=== PATIENT | female | born 1945 | race Caucasian/White ===

== ENCOUNTER 2020-11-30 15:31 | Emergency (ER) | payer MEDICARE, OTHER ==
--- NOTE | 2020-11-30 17:07 | CR ---
PROCEDURE INFORMATION: Exam: XR Chest Exam date and time: 11/30/2020 4:39 PM Age: 75 years old Clinical indication: Shortness of breath TECHNIQUE: Imaging protocol: XR of the chest. Views: 1 view. COMPARISON: No relevant prior studies available. FINDINGS: Lungs: Right lung is clear. Question mild interstitial disease left midlung. No consolidation. Pleural spaces: Unremarkable. No pleural effusion. No pneumothorax. Heart/Mediastinum: Unremarkable. No cardiomegaly. Bones/joints: Unremarkable. IMPRESSION: Question interstitial disease central left lung. Interstitial type pneumonia is not ruled out.
[2020-11-30 17:19] VITALS: BP 116/82; PULSE 75
[2020-11-30 17:19] LABS: ANION GAP 11.6 mEq/L (7-13)
--- NOTE | 2020-11-30 17:34 | EDM.PDOC ---
ED HPI GENERAL MEDICAL PROBLEM - General Chief Complaint: Respiratory Problem Stated Complaint: DIFFICULTY BREATHING, SENT BY [facility] Time Seen by Provider: 11/30/20 17:20 Source of Information: Reports: Patient History Limitations: Reports: No Limitations - History of Present Illness INITIAL COMMENTS - FREE TEXT/NARRATIVE: This 75 yo female patient reports to the ED from the [facility] due to intermittent episodes of shortness of breath. The patient reports she has noticed several of these episodes over the past couple of days, but she has been getting more symptoms today. Onset: Unknown/Unsure Duration: Intermittent Location: Reports: Chest Quality: Reports: Other Severity: Moderate Improves with: Reports: None Worsens with: Reports: None Context: Reports: Other Associated Symptoms: Reports: Cough, Shortness of Breath - Related Data Allergies Allergy/AdvReac Type Severity Reaction Status Date / Time duloxetine HCl Allergy Unknown unknown Verified 05/07/18 10:39 [From Cymbalta] bacitracin Allergy Rash Verified 05/07/18 10:39 [From Neosporin ([id number])] neomycin Allergy Hives Verified 05/07/18 10:39 polymyxin B Allergy Rash Verified 05/07/18 10:39 [From Neosporin ([id number])] Home Meds: Home Meds Acetaminophen [Tylenol Arthritis] 1,300 mg PO BID 03/17/16 [History] Chlorthalidone 25 mg PO DAILY 03/17/16 [History] Furosemide 1 tab PO ASDIRECTED 03/17/16 [History] Gabapentin [Neurontin] 600 mg PO TID 03/17/16 [History] Insulin NPH/Insulin Reg,Human [HumuLIN 70-30 Pen] 55 unit SQ BID 03/17/16 [History] Metoprolol Tartrate 100 mg PO BID 03/17/16 [History] Simvastatin [Zocor] 20 mg PO BEDTIME 03/17/16 [History] amLODIPine Besylate [Amlodipine Besylate] 1 tab PO BID 03/17/16 [History] Acetaminophen/HYDROcodone [[place] 325-5 MG] 1 - 2 tab PO ASDIRECTED PRN 04/30/18 [History] Aspirin [Lo-Dose Aspirin EC] 81 mg PO DAILY 04/30/18 [History] Biotin 1 mg PO DAILY 04/30/18 [History] Cyclobenzaprine [Flexeril] 5 mg PO BEDTIME 04/30/18 [History] Fenofibrate Nanocrystallized [Fenofibrate] 48 mg PO DAILY 04/30/18 [History] Melatonin 10 mg PO BEDTIME 04/30/18 [History] Vitamin E 400 unit PO DAILY 04/30/18 [History] diazePAM [Valium.] 5 mg PO Q6HR PRN 04/30/18 [History] Lidocaine 5% [Lidoderm 5%] 1 patch TOP ASDIRECTED 05/07/18 [History] Multivitamin [Daily Uyen] 1 each PO DAILY 05/07/18 [History] Nystatin 15 gm TP BID 05/07/18 [History] Potassium Chloride 20 meq PO DAILY 05/07/18 [History] Sennosides/Docusate Sodium [Senna-S] 1 tab PO BID 05/07/18 [History] polyethylene glycoL 3350 [MiraLAX] 17 gm PO DAILY 05/07/18 [History] Past Medical History HEENT History: Reports: None Cardiovascular History: Reports: Arrhythmia, Hypertension Respiratory History: Reports: Asthma Other Respiratory History: childhood astma Gastrointestinal History: Reports: None Genitourinary History: Reports: None 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 Musculoskeletal History: Reports: None, Osteoarthritis, Other (See Below) Neurological History: Reports: None Psychiatric History: Reports: None Endocrine/Metabolic History: Reports: None, Diabetes, Type II Hematologic History: Reports: None Immunologic History: Reports: None Oncologic (Cancer) History: Reports: None Dermatologic History: Reports: None - Past Surgical History Cardiovascular Surgical History: Reports: None GI Surgical History: Reports: Appendectomy, Cholecystectomy Musculoskeletal Surgical History: Reports: Knee Replacement, Other (See Below) Other Musculoskeletal Surgeries/Procedures:: back surgery apr 16, both knee replacment Social & Family History - Family History Family Medical History: No Pertinent Family History - Caffeine Use Caffeine Use: Reports: Soda - Living Situation & Occupation Living situation: Reports: , with Spouse Occupation: Retired ED ROS GENERAL - Review of Systems Review Of Systems: Comprehensive ROS is negative, except as noted in HPI. ED EXAM, GENERAL - Physical Exam Exam: See Below Exam Limited By: No Limitations General Appearance: Alert, WD/WN, Anxious, Mild Distress, Obese Eye Exam: Bilateral Eye: EOMI, Normal Inspection, PERRL Ears: Normal External Exam, Normal Canal, Hearing Grossly Normal, Normal TMs Nose: Normal Inspection, Normal Mucosa, No Blood Throat/Mouth: Normal Inspection, Normal Lips, Normal Teeth, Normal Gums, Normal Oropharynx, Normal Voice, No Airway Compromise Head: Atraumatic, Normocephalic Neck: Normal Inspection, Supple, Non-Tender, Full Range of Motion Respiratory/Chest: No Respiratory Distress, Lungs Clear, Normal Breath Sounds, No Accessory Muscle Use, Chest Non-Tender Cardiovascular: Normal Peripheral Pulses, Regular Rate, Rhythm, No Edema, No Gallop, No JVD, No Murmur, No Rub GI/Abdominal: Normal Bowel Sounds, Soft, Non-Tender, No Organomegaly, No Distention, No Abnormal Bruit, No Mass (Female) Exam: Deferred Rectal (Female) Exam: Deferred Back Exam: Normal Inspection, Full Range of Motion, NT Extremities: Normal Inspection, Normal Range of Motion, Non-Tender, Normal Capillary Refill, No Pedal Edema Neurological: Alert, Oriented, CN II-XII Intact, Normal Cognition, Normal Gait, Normal Reflexes, No Motor/Sensory Deficits Psychiatric: Anxious Skin Exam: Warm, Dry, Intact, Normal Color, No Rash #1 Interpretation EKG Date: 11/30/20 Time: 16:27 Rhythm: NSR Rate (Beats/Min): 102 [place]: Normal P-Wave: Present QRS: Normal ST-T: Normal QT: Normal Comparison: NA - No Prior EKG Course - Vital Signs Last Recorded V/S: Last Vital Signs Temp 97 F 11/30/20 16:41 Pulse 75 11/30/20 16:41 Resp 20 11/30/20 16:41 BP 116/82 11/30/20 16:41 Pulse Ox 96 11/30/20 16:41 - Orders/Labs/Meds Orders: Active Orders 24 hr Category Date Time Status EKG 12 Lead [EKG Documentation Completion] [RC] STAT Care 11/30/20 16:24 Active Labs: Laboratory Tests 11/30/20 11/30/20 Range/Units 16:51 16:51 WBC 10.7 H (5.0-10.0) 10^3/uL RBC 4.33 (4.2-5.4) 10^6/uL Hgb 13.5 (12.0-16.0) g/dL Hct 42.1 (37.0-47.0) % MCV 97.2 (80-100) fL MCH 31.2 (27.0-34.0) pg MCHC 32.1 L (33.0-35.0) g/dL Plt Count 434 D (150-450) 10^3/uL Neut % (Auto) 80.2 H (42.2-75.2) % Lymph % (Auto) 10.3 L (20.5-50.1) % [place] % (Auto) 8.5 H (2-8) % Eos % (Auto) 0.6 L (1.0-3.0) % Baso % (Auto) 0.4 (0.0-1.0) % Sodium 142 (136-145) mmol/L Potassium 3.6 (3.5-5.1) mmol/L Chloride 99 (98-107) mmol/L Carbon Dioxide 35 H (21-32) mmol/L Anion Gap 11.6 (7-13) mEq/L BUN 27 H (7-18) mg/dL Creatinine 1.64 H (0.55-1.02) mg/dL Est Cr Clr Drug Dosing 25.27 mL/min Estimated GFR (MDRD) 31 BUN/Creatinine Ratio 16.5 (No establ ref range) Glucose 128 H (70-99) mg/dL Calcium 9.8 (8.5-10.1) mg/dL Total Bilirubin 0.5 (0.2-1.0) mg/dL AST 10 L (15-37) U/L ALT 15 (14-59) U/L Alkaline Phosphatase 67 (46-116) U/L Troponin I High Sens 5 (<=51) pg/mL Total Protein 8.7 H (6.4-8.2) g/dL Albumin 3.4 (3.4-5.0) g/dL Globulin 5.3 Albumin/Globulin Ratio 0.6 Departure - Departure Time of Disposition: 17:31 (') Disposition: Home, Self-Care 01 Condition: Fair Clinical Impression: Bronchitis - Discharge Information *PRESCRIPTION DRUG MONITORING PROGRAM REVIEWED*: Not Applicable *COPY OF PRESCRIPTION DRUG MONITORING REPORT IN PATIENT ANTHONY: Not Applicable Instructions: Acute Bronchitis, Adult, [id number] Care Plan Goals: The patient was advised of the examination, lab, EKG and x-ray results during the visit. The patient has an area of opacity in the left middle lung consistent with a developing bronchitis. The patient was discharged with a script for Augmentin (500/125) #21 to take 1 by mouth 3 times per day for 7 days. If the patient has any additional symptoms or concerns, the patient should either return to the emergency department or visit her primary care facility. Sepsis Event Note (ED) - Evaluation Sepsis Screening Result: No Definite Risk - Focused Exam Vital Signs: Vital Signs Temp Pulse Resp BP Pulse Ox 11/30/20 16:41 97 F 75 20 116/82 96 - My Orders Last 24 Hours: My Active Orders 11/30/20 16:24 EKG 12 Lead [EKG Documentation Completion] [RC] STAT - Assessment/Plan Last 24 Hours: My Active Orders 11/30/20 16:24 EKG 12 Lead [EKG Documentation Completion] [RC] STAT
== END 2020-11-30 17:43 | disposition home or self-care (01) ==
LOC: DL.ED 15:31
DX: J40 Bronchitis, not specified as acute or chronic (principal); I10 Essential (primary) hypertension; E11.9 Type 2 diabetes mellitus without complications; Z79.4 Long term (current) use of insulin; Z79.82 Long term (current) use of aspirin; Z79.899 Other long term (current) drug therapy; Z88.1 Allergy status to other antibiotic agents; Z88.8 Allergy status to other drugs, medicaments and biological substances
CPT/HCPCS: 36415; 71045; 80053; 84484; 85025; 99283; 99285-25

== ENCOUNTER 2020-12-06 14:37 | Emergency (ER) | payer MEDICARE, OTHER ==
[2020-12-06 14:52] VITALS: BP 162/68; PULSE 97
--- NOTE | 2020-12-06 14:53 | EDM.PDOC ---
ED HPI GENERAL MEDICAL PROBLEM - General Chief Complaint: General Stated Complaint: WEAKNESS, DIFFICULTY BREATHING Time Seen by Provider: 12/06/20 14:52 Source of Information: Reports: Patient, RN, RN Notes Reviewed History Limitations: Reports: No Limitations - History of Present Illness INITIAL COMMENTS - FREE TEXT/NARRATIVE: Margarita is a 75 y/o female who presents to the ED via personal vehicle with complaints of weakness. The patient reports her symptoms began three days after starting Augmentin for a diagnosis of bronchitis six days ago. The patient denies fever, shaking chills, chest pain, palpitations, nausea, vomiting, dysuria, or diarrhea. She feels her bilateral upper extremities are the most weak, but notes weakness with ambulation as well. She is still able to perform ADLs, however notes tasks feel more difficult. - Related Data Allergies Allergy/AdvReac Type Severity Reaction Status Date / Time duloxetine HCl Allergy Unknown unknown Verified 12/06/20 14:51 [From Cymbalta] bacitracin Allergy Rash Verified 12/06/20 14:51 [From Neosporin ([id number])] neomycin Allergy Hives Verified 12/06/20 14:51 polymyxin B Allergy Rash Verified 12/06/20 14:51 [From Neosporin ([id number])] Home Meds: Home Meds Chlorthalidone 25 mg PO DAILY 03/17/16 [History] Furosemide 1 tab PO ASDIRECTED 03/17/16 [History] Gabapentin [Neurontin] 600 mg PO TID 03/17/16 [History] Insulin NPH/Insulin Reg,Human [HumuLIN 70-30 Pen] 50 unit SQ BID 03/17/16 [History] Metoprolol Tartrate 100 mg PO BID 03/17/16 [History] Simvastatin [Zocor] 20 mg PO BEDTIME 03/17/16 [History] amLODIPine Besylate [Amlodipine Besylate] 1 tab PO BID 03/17/16 [History] Acetaminophen/HYDROcodone [[place] 325-5 MG] 1 - 2 tab PO ASDIRECTED PRN 04/30/18 [History] Aspirin [Lo-Dose Aspirin EC] 81 mg PO DAILY 04/30/18 [History] Biotin 1 mg PO DAILY 04/30/18 [History] Cyclobenzaprine [Flexeril] 5 mg PO BEDTIME 04/30/18 [History] Fenofibrate Nanocrystallized [Fenofibrate] 48 mg PO DAILY 04/30/18 [History] Melatonin 10 mg PO BEDTIME 04/30/18 [History] Vitamin E 400 unit PO DAILY 04/30/18 [History] Lidocaine 5% [Lidoderm 5%] 1 patch TOP ASDIRECTED 05/07/18 [History] Multivitamin [Daily Uyen] 1 each PO DAILY 05/07/18 [History] Nystatin 15 gm TP BID 05/07/18 [History] Sennosides/Docusate Sodium [Senna-S] 1 tab PO BID 05/07/18 [History] polyethylene glycoL 3350 [MiraLAX] 17 gm PO DAILY 05/07/18 [History] Past Medical History HEENT History: Reports: None Cardiovascular History: Reports: Arrhythmia, Hypertension Respiratory History: Reports: Asthma Other Respiratory History: childhood astma Gastrointestinal History: Reports: None Genitourinary History: Reports: 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 Musculoskeletal History: Reports: None, Osteoarthritis, Other (See Below) Neurological History: Reports: None Psychiatric History: Reports: None Endocrine/Metabolic History: Reports: None, Diabetes, Type II Hematologic History: Reports: None Immunologic History: Reports: None Oncologic (Cancer) History: Reports: None Dermatologic History: Reports: None - Past Surgical History Cardiovascular Surgical History: Reports: None GI Surgical History: Reports: Appendectomy, Cholecystectomy Musculoskeletal Surgical History: Reports: Knee Replacement, Other (See Below) Other Musculoskeletal Surgeries/Procedures:: back surgery apr 16, both knee replacment Social & Family History - Family History Family Medical History: No Pertinent Family History - Caffeine Use Caffeine Use: Reports: Soda - Living Situation & Occupation Living situation: Reports: , with Spouse Occupation: Retired ED ROS GENERAL - Review of Systems Review Of Systems: Comprehensive ROS is negative, except as noted in HPI. ED EXAM, GENERAL - Physical Exam Exam: See Below Exam Limited By: No Limitations General Appearance: Alert, No Apparent Distress, Obese Eye Exam: Bilateral Eye: EOMI, Normal Inspection, PERRL (3mm) Ears: Normal External Exam, Normal Canal, Hearing Grossly Normal, Normal TMs Ear Exam: Bilateral Ear: Auricle Normal, Canal Normal, TM normal Nose: Normal Inspection, Normal Mucosa, No Blood Throat/Mouth: Normal Lips, Normal Teeth, Normal Gums, Normal Voice, No Airway Compromise. No: Normal Oropharynx (Dry mucous membranes) Head: Atraumatic, Normocephalic Neck: Normal Inspection, Supple, Non-Tender, Full Range of Motion. No: Lymphadenopathy (L), Lymphadenopathy (R) Respiratory/Chest: No Respiratory Distress, Lungs Clear, Normal Breath Sounds, No Accessory Muscle Use, Chest Non-Tender Cardiovascular: Normal Peripheral Pulses, No Gallop, No JVD, No Rub, Systolic Murmur (2/6, loudest over the pulmonic area; No radiation into carotids), Irregularly Irregular. No: No Edema Peripheral Pulses: 2+: Radial (L), Radial (R) GI/Abdominal: Normal Bowel Sounds, Soft, Non-Tender, No Distention, No Abnormal Bruit, No Mass, Pelvis Stable (Female) Exam: Deferred Rectal (Female) Exam: Deferred Back Exam: Normal Inspection, Full Range of Motion. No: CVA Tenderness (L), CVA Tenderness (R) Extremities: Normal Inspection, Normal Range of Motion, Non-Tender, No Pedal Edema, Normal Capillary Refill. No: Mottled, Pallor, Redness Neurological: Alert, Oriented, CN II-XII Intact, Normal Cognition, No Motor/Sensory Deficits, Abnormal Gait (Wheelchair for ambulation) Psychiatric: Normal Affect, Normal Mood Skin Exam: Warm, Dry, Intact, Normal Color, No Rash. No: Cyanosis, Jaundice, Mottled, Pallor, Wound/Incision Lymphatic: No Adenopathy #1 Interpretation EKG Date: 12/06/20 Time: 15:00 Rhythm: A-Fib Rate (Beats/Min): 91 [place]: Normal P-Wave: Absent QRS: Normal ST-T: Normal QT: Normal Comparison: Change From Previous EKG (Compared to 11-30-20) EKG Interpretation Comments: AFib; q-wave III; No evidence of acute myocardial ischemia Course - Vital Signs Last Recorded V/S: Last Vital Signs Temp 98.0 F 12/06/20 14:51 Pulse 97 12/06/20 14:51 Resp 16 12/06/20 14:51 BP 162/68 H 12/06/20 14:51 Pulse Ox 98 12/06/20 14:51 - Orders/Labs/Meds Labs: Laboratory Tests 07/21/21 07/21/21 07/21/21 Range/Units 15:23 15:23 17:43 WBC 9.6 (5.0-10.0) 10^3/uL RBC 4.46 (4.2-5.4) 10^6/uL Hgb 13.6 (12.0-16.0) g/dL Hct 42.3 (37.0-47.0) % MCV 94.8 (80-100) fL MCH 30.5 (27.0-34.0) pg MCHC 32.2 L (33.0-35.0) g/dL Plt Count 454 H (150-450) 10^3/uL Neut % (Auto) 80.8 H (42.2-75.2) % Lymph % (Auto) 10.3 L (20.5-50.1) % [place] % (Auto) 7.3 (2-8) % Eos % (Auto) 1.2 (1.0-3.0) % Baso % (Auto) 0.4 (0.0-1.0) % Sodium 138 (136-145) mmol/L Potassium 3.9 (3.5-5.1) mmol/L Chloride 96 L (98-107) mmol/L Carbon Dioxide 32 (21-32) mmol/L Anion Gap 13.9 H (7-13) mEq/L BUN 32 H (7-18) mg/dL Creatinine 1.66 H (0.55-1.02) mg/dL Est Cr Clr Drug Dosing 27.16 mL/min Estimated GFR (MDRD) 30 BUN/Creatinine Ratio 19.3 (No establ ref range) Glucose 168 H (70-99) mg/dL Calcium 9.8 (8.5-10.1) mg/dL Magnesium 1.7 L (1.8-2.4) mg/dL Total Bilirubin 0.5 (0.2-1.0) mg/dL AST 23 (15-37) U/L ALT 13 L (14-59) U/L Alkaline Phosphatase 62 (46-116) U/L Troponin I High Sens 14 (<=51) pg/mL B-Natriuretic Peptide 175 H (0-100) pg/ml Total Protein 8.6 H (6.4-8.2) g/dL Albumin 3.1 L (3.4-5.0) g/dL Globulin 5.5 Albumin/Globulin Ratio 0.56 Vitamin B12 317 (193-986) pg/mL TSH, Ultra Sensitive 1.49 (0.36-3.74) uIU/mL Urine Color (YELLOW) Urine Appearance (CLEAR) Urine pH (5.0-9.0) Ur Specific [place] (1.005-1.030) Urine Protein (NEGATIVE) Urine Glucose (UA) (NEGATIVE) Urine Ketones (NEGATIVE) Urine Occult Blood (NEGATIVE) Urine Nitrite (NEGATIVE) Urine Bilirubin (NEGATIVE) Urine Urobilinogen (0.2-1.0) mg/dL Ur Leukocyte Esterase (NEGATIVE) Urine RBC /HPF Urine WBC (0-5/HPF) /HPF Ur Epithelial Cells (NOT SEEN) /HPF Urine Bacteria (0-FEW/HPF) /HPF Urine Mucus (NOT SEEN) /LPF Ethyl Alcohol < 3 (0) mg/dL Influenza Type A RNA Negative (NEGATIVE) Influenza Type B RNA Negative (NEGATIVE) SARS-CoV-2 RNA ([place]) Negative (NEGATIVE) 12/06/20 Range/Units 17:45 WBC (5.0-10.0) 10^3/uL RBC (4.2-5.4) 10^6/uL Hgb (12.0-16.0) g/dL Hct (37.0-47.0) % MCV (80-100) fL MCH (27.0-34.0) pg MCHC (33.0-35.0) g/dL Plt Count (150-450) 10^3/uL Neut % (Auto) (42.2-75.2) % Lymph % (Auto) (20.5-50.1) % [place] % (Auto) (2-8) % Eos % (Auto) (1.0-3.0) % Baso % (Auto) (0.0-1.0) % Sodium (136-145) mmol/L Potassium (3.5-5.1) mmol/L Chloride (98-107) mmol/L Carbon Dioxide (21-32) mmol/L Anion Gap (7-13) mEq/L BUN (7-18) mg/dL Creatinine (0.55-1.02) mg/dL Est Cr Clr Drug Dosing mL/min Estimated GFR (MDRD) BUN/Creatinine Ratio (No establ ref range) Glucose (70-99) mg/dL Calcium (8.5-10.1) mg/dL Magnesium (1.8-2.4) mg/dL Total Bilirubin (0.2-1.0) mg/dL AST (15-37) U/L ALT (14-59) U/L Alkaline Phosphatase (46-116) U/L Troponin I High Sens (<=51) pg/mL B-Natriuretic Peptide (0-100) pg/ml Total Protein (6.4-8.2) g/dL Albumin (3.4-5.0) g/dL Globulin Albumin/Globulin Ratio Vitamin B12 (193-986) pg/mL TSH, Ultra Sensitive (0.36-3.74) uIU/mL Urine Color Yellow (YELLOW) Urine Appearance Clear (CLEAR) Urine pH 5.5 (5.0-9.0) Ur Specific [place] 1.015 (1.005-1.030) Urine Protein Negative (NEGATIVE) Urine Glucose (UA) Negative (NEGATIVE) Urine Ketones Negative (NEGATIVE) Urine Occult Blood Trace-intact H (NEGATIVE) Urine Nitrite Negative (NEGATIVE) Urine Bilirubin Negative (NEGATIVE) Urine Urobilinogen 0.2 (0.2-1.0) mg/dL Ur Leukocyte Esterase Negative (NEGATIVE) Urine RBC 0-5 /HPF Urine WBC 0-5 (0-5/HPF) /HPF Ur Epithelial Cells Occasional (NOT SEEN) /HPF Urine Bacteria Rare (0-FEW/HPF) /HPF Urine Mucus Not seen (NOT SEEN) /LPF Ethyl Alcohol (0) mg/dL Influenza Type A RNA (NEGATIVE) Influenza Type B RNA (NEGATIVE) SARS-CoV-2 RNA ([place]) (NEGATIVE) Meds: Medications Discontinued Medications Generic Name Dose Route Start Last Admin Trade Name Freq PRN Reason Stop Dose Admin Apixaban 5 mg 12/06/20 18:18 12/06/20 18:29 Apixaban 5 Mg Tab PO 12/06/20 18:19 5 mg ONETIME ONE Administration - Re-Assessments/Exams Free Text/Narrative Re-Assessment/Exam: 12/06/20 Patient noted to be in AFib, compared to recent visit patient was in NSR. Given new onset weakness and dyspnea with exertion, in conjunction with findings of new Afib, case discussed with Dr. Borges for observation for initiation of anticoagulation and overnight cardiac monitoring. Blood work, imaging, and examination reviewed with Dr. Borges who feels the patient does not meet criteria for observation as her weakness and dyspnea do not require monitoring. Dr. Borges states anticoagulation can be initiated in the EOD setting with an appropriate CHADS2 score. Walking desaturation study performed to ensure patient safety at home. Appropriate saturations noted throughout study; work of breathing increased to low 30s RR, but reduced appropriately to low 20s with one minute of rest. Patient has walker at home. Findings of examination, lab work, imaging, and discussion with Dr. Borges reviewed with patient and . Will initiate anticoagulation with Apixaban 2.5mg. Patient instructed to follow up with primary care provider tomorrow morning. Red flag signs and symptoms which would warrant reevaluation reviewed. Patient and verbalized understanding and agreement with the plan of care. Departure - Departure Time of Disposition: 18:20 Disposition: Home, Self-Care 01 Condition: Fair Clinical Impression: Weakness, Dyspnea on exertion, Atrial fibrillation by electrocardiogram - Discharge Information *PRESCRIPTION DRUG MONITORING PROGRAM REVIEWED*: Not Applicable *COPY OF PRESCRIPTION DRUG MONITORING REPORT IN PATIENT ANTHONY: Not Applicable Instructions: Weakness, [id number], Shortness of Breath, Adult, Atrial Fibrillation, [id number] Referrals: Ambar Pearl MD [Primary Care Provider] - Forms: ED Department Discharge Additional Instructions: Rx: apixaban 1.) Stop taking Augmentin. 2.) Follow up with Dr. Pearl in 1-2 days regarding today's visit. 3.) Return to the emergency department with any worsening symptoms, fever, shaking chills, chest pain, or shortness of breath at rest. Sepsis Event Note (ED) - Evaluation Sepsis Screening Result: No Definite Risk
[2020-12-06 16:30] LABS: ANION GAP 13.9 mEq/L (7-13); CHLORIDE,CL 96 mmol/L (98-107); SODIUM,NA 138 mmol/L (136-145)
[2020-12-06] MEDS ORDERED: Apixaban 5 MG Tab PO ONE (18:18)
[2020-12-06 18:38] LABS: CORONAVIRUS COVID-19 NAA NEGATIVE (NEGATIVE)
--- NOTE | 2020-12-06 18:57 | CR ---
PROCEDURE INFORMATION: Exam: XR Chest Exam date and time: 12/06/2020 6:19 PM Age: 75 years old Clinical indication: Shortness of breath; Additional info: Weakness; SOB with exertion TECHNIQUE: Imaging protocol: XR of the chest. Views: 1 view. COMPARISON: CR Chest 1V Frontal 11/30/2020 4:39 PM FINDINGS: Lungs: Unremarkable. No consolidation. Pleural spaces: Unremarkable. No pleural effusion. No pneumothorax. Heart/Mediastinum: Unremarkable. No cardiomegaly. Bones/joints: Unremarkable. IMPRESSION: No acute findings.
--- NOTE | 2020-12-15 11:17 | PCM.SN.2 ---
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 Pearl, regarding last night's EOD visit. Dr. Pearl informed of prescription for Apixaban and need for follow up. Cafeteria Clerk's discussion with Dr. Borges about observation reviewed with Dr. Pearl.
== END 2020-12-06 18:34 | disposition home or self-care (01) ==
LOC: DL.ED 14:37
DX: R53.1 Weakness (principal); I48.91 Unspecified atrial fibrillation; R06.00 Dyspnea, unspecified; I10 Essential (primary) hypertension; E11.9 Type 2 diabetes mellitus without complications; J45.909 Unspecified asthma, uncomplicated; Z79.82 Long term (current) use of aspirin; Z79.4 Long term (current) use of insulin; Z79.899 Other long term (current) drug therapy; Z88.1 Allergy status to other antibiotic agents; Z88.8 Allergy status to other drugs, medicaments and biological substances; Z20.822 Contact with and (suspected) exposure to COVID-19
CPT/HCPCS: 0240U; 36415; 71045; 80053; 80307; 81001; 82607; 83735; 83880; 84443; 84484; 85025; 93005; 99285; A9270

== ENCOUNTER 2020-12-29 16:41 | Emergency (ER) | payer MEDICARE, OTHER ==
--- NOTE | 2020-12-29 16:46 | EDM.PDOC ---
ED HPI GENERAL MEDICAL PROBLEM - General Chief Complaint: Chest Pain Stated Complaint: CHEST PAIN SENT BY [facility] Time Seen by Provider: 12/29/20 16:45 Source of Information: Reports: Patient, Old Records, Provider (Dr. Pearl), RN, RN Notes Reviewed History Limitations: Reports: No Limitations - History of Present Illness INITIAL COMMENTS - FREE TEXT/NARRATIVE: Margarita is a 75 y/o female with a history of new onset AFib, anticoagulated on Eliquis, who presents to the ED via personal vehicle for complaints of chest pain. The patient's provider, Dr. Pearl, called fiction and nonfiction prose writer for update regarding her conversation with the patient earlier today regarding crushing chest pain that began this morning. The patient is set to receive cardiac catheterization on January [address] [facility], and has been started on Lorazepam for anxiety related to her recent diagnosis of AFib. The patient states her pain began this morning in her left lower chest and has since radiated into left upper chest. She has taken no medications for her pain. She denies fever, shaking chills, sore throat, abdominal pain, nausea, vomiting, or diarrhea. She does attest to weakness and productive cough. Chest Pain Score (Numeric/FACES): 9 - Related Data Allergies Allergy/AdvReac Type Severity Reaction Status Date / Time duloxetine HCl Allergy Unknown unknown Verified 12/06/20 14:51 [From Cymbalta] bacitracin Allergy Rash Verified 12/06/20 14:51 [From Neosporin ([id number])] neomycin Allergy Hives Verified 12/06/20 14:51 polymyxin B Allergy Rash Verified 12/06/20 14:51 [From Neosporin ([id number])] Home Meds: Home Meds Chlorthalidone 25 mg PO DAILY 03/17/16 [History] Furosemide 1 tab PO ASDIRECTED 03/17/16 [History] Gabapentin [Neurontin] 600 mg PO TID 03/17/16 [History] Insulin NPH/Insulin Reg,Human [HumuLIN 70-30 Pen] 50 unit SQ BID 03/17/16 [History] Metoprolol Tartrate 100 mg PO BID 03/17/16 [History] Simvastatin [Zocor] 20 mg PO BEDTIME 03/17/16 [History] amLODIPine Besylate [Amlodipine Besylate] 1 tab PO BID 03/17/16 [History] Acetaminophen/HYDROcodone [Frohna 325-5 MG] 1 - 2 tab PO ASDIRECTED PRN 04/30/18 [History] Aspirin [Lo-Dose Aspirin EC] 81 mg PO DAILY 04/30/18 [History] Biotin 1 mg PO DAILY 04/30/18 [History] Cyclobenzaprine [Flexeril] 5 mg PO BEDTIME 04/30/18 [History] Fenofibrate Nanocrystallized [Fenofibrate] 48 mg PO DAILY 04/30/18 [History] Melatonin 10 mg PO BEDTIME 04/30/18 [History] Vitamin E 400 unit PO DAILY 04/30/18 [History] Lidocaine 5% [Lidoderm 5%] 1 patch TOP ASDIRECTED 05/07/18 [History] Multivitamin [Daily Uyen] 1 each PO DAILY 05/07/18 [History] Nystatin 15 gm TP BID 05/07/18 [History] Sennosides/Docusate Sodium [Senna-S] 1 tab PO BID 05/07/18 [History] polyethylene glycoL 3350 [MiraLAX] 17 gm PO DAILY 05/07/18 [History] Past Medical History HEENT History: Reports: None Cardiovascular History: Reports: Arrhythmia, Hypertension Respiratory History: Reports: Asthma Other Respiratory History: childhood astma Gastrointestinal History: Reports: None Genitourinary History: Reports: None OVERHEAD WORKER History: Reports: None Musculoskeletal History: Reports: None, Osteoarthritis, Other (See Below) Neurological History: Reports: None Psychiatric History: Reports: None Endocrine/Metabolic History: Reports: None, Diabetes, Type II Hematologic History: Reports: None Immunologic History: Reports: None Oncologic (Cancer) History: Reports: None Dermatologic History: Reports: None - Past Surgical History Cardiovascular Surgical History: Reports: None GI Surgical History: Reports: Appendectomy, Cholecystectomy Musculoskeletal Surgical History: Reports: Knee Replacement, Other (See Below) Other Musculoskeletal Surgeries/Procedures:: back surgery apr 16, both knee replacment Social & Family History - Family History Family Medical History: No Pertinent Family History - Caffeine Use Caffeine Use: Reports: None - Living Situation & Occupation Living situation: Reports: , with Spouse Occupation: Retired ED ROS GENERAL - Review of Systems Review Of Systems: Comprehensive ROS is negative, except as noted in HPI. ED EXAM, GENERAL - Physical Exam Exam: See Below Exam Limited By: No Limitations General Appearance: Alert, Anxious, Mild Distress (Chest pain), Obese Eye Exam: Bilateral Eye: EOMI, Normal Inspection, PERRL (3mm) Ears: Normal External Exam, Hearing Grossly Normal Nose: Normal Inspection, Normal Mucosa, No Blood Throat/Mouth: Normal Voice, No Airway Compromise. No: Normal Oropharynx (Dry mucous membranes) Head: Atraumatic, Normocephalic Neck: Normal Inspection, Supple, Non-Tender, Full Range of Motion. No: Lymphadenopathy (L), Lymphadenopathy (R) Respiratory/Chest: No Accessory Muscle Use, Decreased Breath Sounds, Rales (To right lower lobe). No: Chest Non-Tender, Crackles, Rhonchi, Wheezing Cardiovascular: No Gallop, No JVD, No Murmur, No Rub, Tachycardia, Irregularly Irregular. No: No Edema Peripheral Pulses: 2+: Radial (L), Radial (R), Dorsalis Pedis (L), Dorsalis Pedis (R) GI/Abdominal: Normal Bowel Sounds, Soft, Non-Tender, No Distention, No Abnormal Bruit, No Mass, Pelvis Stable (Female) Exam: Deferred Rectal (Female) Exam: Deferred Back Exam: Normal Inspection, Full Range of Motion Extremities: Normal Inspection, Normal Range of Motion, Non-Tender, Normal Capillary Refill, Pedal Edema (Trace to LLE) Neurological: Alert, Oriented, CN II-XII Intact, Normal Cognition, Normal Gait, No Motor/Sensory Deficits Psychiatric: Anxious Skin Exam: Warm, Dry, Intact, Normal Color. No: Cyanosis, Ecchymosis, Erythema, Jaundice, Mottled, Pallor, Petechiae #1 Interpretation EKG Date: 12/29/20 Time: 17:07 Rhythm: A-Fib Rate (Beats/Min): 101 Wilmer: Normal P-Wave: Absent QRS: Normal ST-T: Elevated Course - Vital Signs Last Recorded V/S: Last Vital Signs Temp 97 F 12/29/20 16:45 Pulse 112 H 12/29/20 16:45 Resp 28 H 12/29/20 16:45 BP 139/79 12/29/20 17:02 Pulse Ox 98 12/29/20 16:45 - Orders/Labs/Meds Labs: Laboratory Tests 08/13/21 08/13/21 08/13/21 Range/Units 17:01 17:01 17:01 WBC 11.3 H (5.0-10.0) 10^3/uL RBC 4.21 (4.2-5.4) 10^6/uL Hgb 13.4 (12.0-16.0) g/dL Hct 40.4 (37.0-47.0) % MCV 96.0 (80-100) fL MCH 31.8 (27.0-34.0) pg MCHC 33.2 (33.0-35.0) g/dL Plt Count 283 D (150-450) 10^3/uL Neut % (Auto) 81.9 H (42.2-75.2) % Lymph % (Auto) 9.9 L (20.5-50.1) % [place] % (Auto) 6.6 (2-8) % Eos % (Auto) 1.2 (1.0-3.0) % Baso % (Auto) 0.4 (0.0-1.0) % PT 11.2 (9.0-12.0) SEC INR 1.1 (0.9-1.2) APTT 27.6 (22.0-34.0) SEC Sodium 141 (136-145) mmol/L Potassium 3.9 (3.5-5.1) mmol/L Chloride 101 (98-107) mmol/L Carbon Dioxide 28 (21-32) mmol/L Anion Gap 15.9 H (7-13) mEq/L BUN 27 H (7-18) mg/dL Creatinine 1.49 H (0.55-1.02) mg/dL Est Cr Clr Drug Dosing 27.82 mL/min Estimated GFR (MDRD) 34 BUN/Creatinine Ratio 18.1 (No establ ref range) Glucose 118 H (70-99) mg/dL Calcium 8.7 (8.5-10.1) mg/dL Magnesium 1.5 L (1.8-2.4) mg/dL Total Bilirubin 0.5 (0.2-1.0) mg/dL AST 27 (15-37) U/L ALT 17 (14-59) U/L Alkaline Phosphatase 70 (46-116) U/L Troponin I High Sens 2676 H* (<=51) pg/mL C-Reactive Protein 3.6 H (0.0-0.9) mg/dL B-Natriuretic Peptide 161 H (0-100) pg/ml Total Protein 8.3 H (6.4-8.2) g/dL Albumin 3.3 L (3.4-5.0) g/dL Globulin 5.0 Albumin/Globulin Ratio 0.66 Meds: Medications Discontinued Medications Generic Name Dose Route Start Last Admin Trade Name Freq PRN Reason Stop Dose Admin Aspirin 324 mg 12/29/20 17:49 12/29/20 17:56 Aspirin 81 Mg Tab.Chew PO 12/29/20 17:50 324 mg ONETIME ONE Administration Heparin Sodium (Porcine) 4,000 units 12/29/20 17:49 12/29/20 17:56 Heparin Sodium 5,000 Units/Ml Vial IVPUSH 12/29/20 17:50 4,000 units .BOLUS ONE Administration Heparin Sodium/Sodium Chloride 25,000 units in 500 mls @ 19.305 mls/hr 12/29/20 18:00 12/29/20 17:56 Heparin 25,000 Units In 1/2 Ns 500 Ml IV 8 units/kg/hr TITRATE CONRADO 19.305 mls/hr Administration Protocol 8 UNITS/KG/HR Nitroglycerin 0.4 mg 12/29/20 17:00 12/29/20 17:02 Nitroglycerin 0.4 Mg Tab.Sl SL 12/29/20 17:01 0.4 mg ONETIME ONE Administration - Radiology Interpretation Free Text/Narrative:: [facility] Final Radiology Report Call: [phone] assistance Online chat: [email or web address] Name: MARGARTIA CAMPO Age: 75Years F Date: 12/29/2020 SSN: -- : [id number] Study: CR CHEST 1V FRONTAL Requesting Physician: Rachell Newman Images: 1 Addl Studies: Provided Clinical History: Chest pain Contrast: Contrast Medium: Contrast Amount: Contrast Method: CONFIDENTIALITY STATEMENT This report is intended only for use by the referring physician, and only in accordance with law. If you received this in error, call [phone]. Page 1 of 1 PROCEDURE INFORMATION: Exam: XR Chest Exam date and time: 12/29/2020 5:04 PM Age: 75 years old Clinical indication: Other: Chest pain TECHNIQUE: Imaging protocol: XR of the chest. Views: 1 view. COMPARISON: CR Chest 1V Frontal 12/06/2020 6:19 PM FINDINGS: Lungs: Linear atelectasis/scarring in right lower lung. There are no suspicious pulmonary nodules or areas of lung consolidation. Pleural spaces: Unremarkable. No pleural effusion. No pneumothorax. Heart/Mediastinum: Unremarkable. No cardiomegaly. Bones/joints: Age appropriate. IMPRESSION: Linear atelectasis/scarring in right lower lung. This is unchanged. Thank you for allowing us to participate in the care of your patient. Dictated and Authenticated by: Shelton Young MD 12/29/2020 5:21 PM Central Time ([place] & [place]) - Re-Assessments/Exams Free Text/Narrative Re-Assessment/Exam: 12/29/20 Nitro SL administered with appropriate pain reduction from 8 to 2. 2L of O2 applied. EKG reviewed with Dr. David who states concern regarding ST changes in II, III, and aVR. Troponin 2600+ ASA 325mg chewed. Heparin gtt initiated at 8 u/kg/hr with 4000u bolus administered. Dr. Mcguire accepting patient for transfer into [facility]. Findings of examination, lab work, imaging and discussion with Dr. David reviewed with patient. Patient and verbalized understanding and agreement with the plan of care. Departure - Departure Time of Disposition: 18:25 Disposition: DC/Tfer to Acute Hospital 02 Reason for Transfer *Q: Primary PCI Indicated Clinical Impression: STEMI (ST elevation myocardial infarction) Qualifiers: Involved coronary artery: unspecified coronary artery Qualified Code(s): I21.3 - ST elevation (STEMI) myocardial infarction of unspecified site Referrals: PCP,None [Primary Care Provider] - Forms: Interfacility Transfer EMTALA, ED Department Discharge
[2020-12-29] MEDS ORDERED: Nitroglycerin 0.4 MG Tab.SL SL ONE (17:00)
[2020-12-29 17:03] VITALS: BP 139/79
[2020-12-29 17:15] VITALS: PULSE 112
--- NOTE | 2020-12-29 17:22 | CR ---
PROCEDURE INFORMATION: Exam: XR Chest Exam date and time: 12/29/2020 5:04 PM Age: 75 years old Clinical indication: Other: Chest pain TECHNIQUE: Imaging protocol: XR of the chest. Views: 1 view. COMPARISON: CR Chest 1V Frontal 12/06/2020 6:19 PM FINDINGS: Lungs: Linear atelectasis/scarring in right lower lung. There are no suspicious pulmonary nodules or areas of lung consolidation. Pleural spaces: Unremarkable. No pleural effusion. No pneumothorax. Heart/Mediastinum: Unremarkable. No cardiomegaly. Bones/joints: Age appropriate. IMPRESSION: Linear atelectasis/scarring in right lower lung. This is unchanged.
[2020-12-29 17:29] LABS: ANION GAP 15.9 mEq/L (7-13)
[2020-12-29 17:35] LABS: PTT,PARTIAL THROMBOPLSTIN TIME 27.6 SEC (22.0-34.0)
[2020-12-29] MEDS ORDERED: Aspirin 81 MG Tab.Chew PO ONE (17:49)
[2020-12-29] MEDS ORDERED: Heparin Sodium 5,000 Units/ML Vial IVPUSH ONE (17:49)
[2020-12-29] MEDS ORDERED: Heparin Sodium/0.45% NaCl 25,000 UNITS/500 ML BAG IV SCH (18:00)
== END 2020-12-29 18:33 ==
LOC: DL.ED 16:41
DX: I21.3 ST elevation (STEMI) myocardial infarction of unspecified site (principal); I10 Essential (primary) hypertension; J45.909 Unspecified asthma, uncomplicated; M19.90 Unspecified osteoarthritis, unspecified site; E11.9 Type 2 diabetes mellitus without complications; Z88.8 Allergy status to other drugs, medicaments and biological substances; Z88.1 Allergy status to other antibiotic agents; Z79.4 Long term (current) use of insulin; Z79.82 Long term (current) use of aspirin; Z79.899 Other long term (current) drug therapy
CPT/HCPCS: 36415; 71045; 80053; 83735; 83880; 84484; 85025; 85610; 85730; 86140; 93005; 93010; 96365; 99285; 99285-25; A9270-GY; J1644

== ENCOUNTER 2022-03-17 03:46 | Emergency (ER) | payer MEDICARE, OTHER ==
[2022-03-17] MEDS ORDERED: Ciprofloxacin 500 MG Tab PO ONE (03:47)
[2022-03-17] MEDS ORDERED: Sodium Chloride 0.9% 10 ML Syringe FLUSH PRN (04:00)
[2022-03-17] MEDS ORDERED: Sodium Chloride 0.9% 1,000 ML IV ONE (04:25)
[2022-03-17 04:48] LABS: ANION GAP 9.1 mEq/L (7-13)
[2022-03-17] MEDS ORDERED: Acetaminophen 500 MG Tab PO ONE (05:12)
[2022-03-17] MEDS ORDERED: cefTRIAXone 2 GM in Sodium Chloride 0.9% 100 ML IV ONE (05:49)
[2022-03-17 06:18] VITALS: BP 125/91; PULSE 104
[2022-03-17] MEDS ORDERED: Ciprofloxacin 500 MG Tab ONE (06:29)
== END 2022-03-17 06:58 | disposition home or self-care (01) ==
LOC: DL.ED 03:46
DX: N30.00 Acute cystitis without hematuria (principal); R53.1 Weakness; I48.91 Unspecified atrial fibrillation; I10 Essential (primary) hypertension; E11.9 Type 2 diabetes mellitus without complications; M19.90 Unspecified osteoarthritis, unspecified site; Z88.1 Allergy status to other antibiotic agents; Z88.8 Allergy status to other drugs, medicaments and biological substances; Z79.82 Long term (current) use of aspirin; Z79.899 Other long term (current) drug therapy; Z79.4 Long term (current) use of insulin
CPT/HCPCS: 36415; 80053; 81001; 83605; 83735; 83880; 85025; 86140; 87086; 87088; 87186; 93005; 96361; 96365; 99285; A9270; J0696; J3490; J7030

== ENCOUNTER 2022-03-17 12:57 | Emergency (ER) | payer MEDICARE, OTHER ==
[2022-03-17] MEDS ORDERED: Sodium Chloride 0.9% 10 ML Syringe FLUSH PRN (13:00)
[2022-03-17] MEDS ORDERED: Metoprolol Tartrate 5 MG/5 ML SDV IVPUSH ONE (13:18)
[2022-03-17] MEDS ORDERED: HYDROmorphone 1 MG/ML Syringe IVPUSH ONE ×3 (13:18→15:29)
[2022-03-17] MEDS ORDERED: Diltiazem 25 MG/5 ML SDV IVPUSH ONE (14:09)
[2022-03-17 14:26] VITALS: BP 133/89; PULSE 114
[2022-03-17 14:27] LABS: PTT,PARTIAL THROMBOPLSTIN TIME 27.5 SEC (22.0-34.0)
[2022-03-17] MEDS ORDERED: Diltiazem 125 MG in Sodium Chloride 0.9% 100 ML IV SCH (14:30)
[2022-03-17 14:37] LABS: ANION GAP 12.6 mEq/L (7-13)
== END 2022-03-17 13:55 ==
LOC: DL.ED 12:57
DX: S72.491A Other fracture of lower end of right femur, initial encounter for closed fracture (principal); N30.00 Acute cystitis without hematuria; E11.9 Type 2 diabetes mellitus without complications; M19.90 Unspecified osteoarthritis, unspecified site; I48.91 Unspecified atrial fibrillation; Z88.8 Allergy status to other drugs, medicaments and biological substances; Z88.1 Allergy status to other antibiotic agents; W01.0XXA Fall on same level from slipping, tripping and stumbling without subsequent striking against object, initial encounter; Y92.009 Unspecified place in unspecified non-institutional (private) residence as the place of occurrence of the external cause
CPT/HCPCS: 36410; 36415; 71045; 73560; 80053; 82550; 83605; 83735; 83880; 84145; 84484; 85025; 85610; 85730; 86140; 87040; 93005; 96374; 96375; 96376; 99285; J1170; J3490